=== PATIENT | female | born 1990 | race Caucasian/White ===

== ENCOUNTER 2019-11-07 16:33 | Inpatient (IN) | payer OTHER, BC ==
[~2019-11-07] VITALS: Ht 162.6 cm; Wt 112.9 kg
[2019-11-07] MEDS ORDERED: OXYTOCIN/0.9 % SODIUM CHLORIDE 1,000 ML IV SCH (20:27)
[2019-11-07] MEDS ORDERED: DINOPROSTONE 10 MG SUPP VG ONE (20:30)
[2019-11-07] MEDS ORDERED: TERBUTALINE SULFATE 1 MG/ML VIAL SUBCUT ONE (20:30)
[2019-11-07 20:45] VITALS: BP_SYST 109
[2019-11-07 21:18] LABS: BASOPHILS # (AUTO) 0.1 K/uL (0.0-0.2); BASOPHILS % (AUTO) 0.8 % (0.0-2.0); EOSINOPHILS # (AUTO) 0.1 K/uL (0.0-0.4); EOSINOPHILS % (AUTO) 0.7 % (0.0-4.0); HEMATOCRIT 39.7 % (36-48); HEMOGLOBIN 13.6 g/dL (12.0-16.0); LYMPHOCYTES # (AUTO) 1.5 K/uL (1.0-5.5); LYMPHOCYTES % (AUTO) 20.6 % (20.5-51.5); MEAN CORPUSCULAR HEMOGLOBIN 33 pg (27-31); MEAN CORPUSCULAR HGB CONC 34 % (32-36); MEAN CORPUSCULAR VOLUME 97 fL (79.0-98.0); MONOCYTES # (AUTO) 0.7 K/uL (0.0-1.0); MONOCYTES % (AUTO) 9.6 % (1.7-9.3); NEUTROPHILS # (AUTO) 5.1 K/uL (1.8-7.7); NEUTROPHILS % (AUTO) 68.3 % (40.0-70.0); PLATELET COUNT (AUTO) 170 K/uL (130-430); RED BLOOD CELL COUNT(AUTO) 4.11 MIL/uL (4.2-6.2); RED CELL DISTRIBUTION WIDTH 13.3 % (9.0-15.0); WHITE BLOOD COUNT (AUTO) 7.5 K/uL (4.8-10.8)
[2019-11-07] MEDS: LR 1,000 ML IV SCH (21:55)
[2019-11-08] MEDS ORDERED: MORPHINE SULFATE 10 MG/ML VIAL IVP PRN ×2 (07:30→11:07)
[2019-11-08] MEDS ORDERED: ROPIVACAINE HCL/PF 0.2% 200 ML ONE (07:54)
[2019-11-08] MEDS ORDERED: fentaNYL CITRATE/PF 100 MCG/2 ML AMP ONE ×3 (07:54→16:10)
[2019-11-08] MEDS ORDERED: MORPHINE SULFATE 10 MG/ML VIAL ONE (07:55)
[2019-11-08] MEDS: LR 1,000 ML IV SCH ×2 (08:00→11:28)
[2019-11-08] MEDS ORDERED: CEFAZOLIN 2 GM IVPB PREMIX 50 ML IV ONE (15:45)
[2019-11-08] MEDS ORDERED: NALOXONE HCL 0.4 MG/ML AMP (NARCAN) IVP PRN ×2 (16:45)
[2019-11-08] MEDS ORDERED: DIPHENHYDRAMINE INJ 50 MG/ML VIAL IVP PRN (16:45)
[2019-11-08] MEDS ORDERED: NALBUPHINE HCL 10 MG/ML AMP IVP PRN (16:45)
[2019-11-08] MEDS ORDERED: MORPHINE SULFATE 10MG/10ML PF AMP EP SCH (16:45)
[2019-11-08] MEDS ORDERED: fentaNYL CITRATE/PF 100 MCG/2 ML AMP IVP PRN ×2 (16:45)
[2019-11-08] MEDS ORDERED: ONDANSETRON HCL 4 MG/2 ML VIAL IVP PRN (16:45)
[2019-11-08] MEDS ORDERED: KETOROLAC TROMETHAMINE 60 MG/2 ML VIAL IM PRN (16:45)
[2019-11-08] MEDS ORDERED: LR 1,000 ML IV SCH (17:35)
[2019-11-08 17:45] VITALS: BP_SYST 112
[2019-11-08] MEDS ORDERED: ANUSOL 1 EA SUPP.RECT (PREPARATION H) RC PRN (17:45)
[2019-11-08] MEDS ORDERED: TEMAZEPAM 15 MG CAPSULE PO PRN (17:45)
[2019-11-08] MEDS ORDERED: MEASLES,MUMPS&RUBELLA VACC/PF 12500 UNIT/0.5 ML VIAL SUBQ PRN (17:45)
[2019-11-08] MEDS ORDERED: DIPH-TET-PERTUS Vaccine 0.5 ML VIAL (ADACEL) I.M. PRN (17:45)
[2019-11-08] MEDS ORDERED: RHO(D) IMMUNE GLOBULIN/MALTOSE 1500 UNITS/1.3 ML (WINHRO) IM PRN (17:45)
[2019-11-08] MEDS ORDERED: BISACODYL 10 MG/SUPPOSITORY RC PRN (17:45)
[2019-11-08] MEDS ORDERED: HYDROcodone/ACETAMIN 5-325 MG TAB (NORCO/ VICODIN) PO PRN (17:45)
[2019-11-08] MEDS ORDERED: SENNOSIDES/DOCUSATE SODIUM 1 TAB TABLET(SENOKOT-S) PO PRN (17:45)
[2019-11-08] MEDS ORDERED: LANOLIN 7 GM OINT. TP PRN (17:45)
[2019-11-08] MEDS ORDERED: OXYCODONE/ACETAMINOPHEN 5-325 TABLET PO PRN (17:45)
[2019-11-08] MEDS ORDERED: NS IRRIG SOLN 1000 ML IR ONE (17:50)
[2019-11-08] MEDS ORDERED: BUPIVACAINE /DEX PF 0.75% SPINAL 2 ML AMP INJ ONE (17:50)
[2019-11-08] MEDS ORDERED: LR 1,000 ML IV.SOLN IV ONE (17:50)
[2019-11-08] MEDS ORDERED: MORPHINE SULFATE 10MG/10ML PF AMP ONE (17:50)
[2019-11-08] MEDS ORDERED: KETOROLAC TROMETHAMINE 30 MG VIAL ONE (17:50)
[2019-11-08] MEDS ORDERED: ePHEDrine sulfate 50 MG/ML VIAL ONE (17:50)
[2019-11-08] MEDS ORDERED: ROPIVACAINE HCL/PF 0.2% 200 ML EP ONE (21:45)
[2019-11-08] MEDS: SIMETHICONE 80 MG TAB.CHEW PO PRN (23:59)
[2019-11-09] MEDS ORDERED: IBUPROFEN 600 MG TABLET PO SCH
[2019-11-09] MEDS: CEFAZOLIN 1 GM IVPB PREMIX 50 ML IV SCH ×3 (00:01→12:00)
[2019-11-09] MEDS: OXYTOCIN/0.9 % SODIUM CHLORIDE 1,000 ML IV SCH ×2 (00:01→08:18)
[2019-11-09] MEDS: KETOROLAC TROMETHAMINE 30 MG VIAL IVP SCH ×4 (00:01→18:24)
[2019-11-09] MEDS: SIMETHICONE 80 MG TAB.CHEW PO PRN ×3 (05:30→18:22)
[2019-11-09 07:15] LABS: BASOPHILS % (AUTO) 0.2 % (0.0-2.0); HEMATOCRIT 28.6 % (36-48); HEMOGLOBIN 9.6 g/dL (12.0-16.0); LYMPHOCYTES # (AUTO) 1.1 K/uL (1.0-5.5); LYMPHOCYTES % (AUTO) 8.4 % (20.5-51.5); MEAN CORPUSCULAR HEMOGLOBIN 33 pg (27-31); MEAN CORPUSCULAR HGB CONC 34 % (32-36); MEAN CORPUSCULAR VOLUME 98 fL (79.0-98.0); MONOCYTES % (AUTO) 7.8 % (1.7-9.3); NEUTROPHILS # (AUTO) 10.5 K/uL (1.8-7.7); NEUTROPHILS % (AUTO) 83.6 % (40.0-70.0); PLATELET COUNT (AUTO) 131 K/uL (130-430); RED BLOOD CELL COUNT(AUTO) 2.92 MIL/uL (4.2-6.2); RED CELL DISTRIBUTION WIDTH 13.3 % (9.0-15.0); WHITE BLOOD COUNT (AUTO) 12.5 K/uL (4.8-10.8)
--- NOTE | 2019-11-09 13:33 | NUR ---
Dietitian Recommendations * Recommend continuing regular, lactose-free diet * RD provided MNT LP, RD Please refer to Nutrition Assessment for details.
[2019-11-09] MEDS: DOCUSATE SODIUM 100 MG CAPSULE PO PRN (18:22)
[2019-11-10] MEDS: IBUPROFEN 600 MG TABLET PO SCH ×4 (00:02→17:54)
[2019-11-10] MEDS: SIMETHICONE 80 MG TAB.CHEW PO PRN ×3 (00:02→19:01)
[2019-11-10] MEDS: DOCUSATE SODIUM 100 MG CAPSULE PO PRN ×2 (00:02→06:06)
[2019-11-10] MEDS: OXYCODONE/ACETAMINOPHEN *10*mg/325 mg TABLET PO PRN (19:02)
[2019-11-11] MEDS: DOCUSATE SODIUM 100 MG CAPSULE PO PRN ×2 (00:03→12:20)
[2019-11-11] MEDS: IBUPROFEN 600 MG TABLET PO SCH ×3 (00:03→12:20)
[2019-11-11] MEDS: SIMETHICONE 80 MG TAB.CHEW PO PRN ×2 (00:03→12:20)
[2019-11-11] MEDS: OXYCODONE/ACETAMINOPHEN *10*mg/325 mg TABLET PO PRN ×2 (02:23→14:11)
== END 2019-11-11 15:20 | disposition home or self-care (01) | DRG 788 ==
LOC: SPU 20:12
PROVIDERS: ADMIT Specialist; ATTEND Specialist
PROC: 3E0P7VZ Introduction of Hormone into Female Reproductive, Via Natural or Artificial Opening (ICD-10-PCS; 2019-11-07)
PROC: 00HU33Z Insertion of Infusion Device into Spinal Canal, Percutaneous Approach (ICD-10-PCS; 2019-11-07)
PROC: 3E0R3BZ Introduction of Anesthetic Agent into Spinal Canal, Percutaneous Approach (ICD-10-PCS; 2019-11-07)
PROC: 10D00Z1 Extraction of Products of Conception, Low, Open Approach (ICD-10-PCS; principal; 2019-11-08 16:30)
DX: O62.2 Other uterine inertia (principal); O32.4XX0 Maternal care for high head at term, not applicable or unspecified; O33.9 Maternal care for disproportion, unspecified; Z37.0 Single live birth; Z3A.00 Weeks of gestation of pregnancy not specified
CPT/HCPCS: 36415; 85025; 86592; 86886; 86900; 86901; 94760; J0690; J1885; J2270; J2274; J2405; J2590; J3010; J3490; J7120